=== PATIENT | female | born 1990 | race Two or more races ===

== ENCOUNTER 2021-04-19 11:07 | Emergency (ER) | payer OTHER ==
[~2021-04-19] VITALS: Ht 170.2 cm; Wt 106.6 kg
== END 2021-04-19 15:49 | disposition home or self-care (01) ==
LOC: ER 11:07
DX: O03.9 Complete or unspecified spontaneous abortion without complication (principal); Z20.822 Contact with and (suspected) exposure to COVID-19

== ENCOUNTER 2021-12-21 11:13 | Outpatient (CLI) | payer OTHER | END 2021-12-21 12:26 | disposition home or self-care (01) | LOC: PRENATAL 11:13 | PROVIDERS: ATTEND Obstetrics & Gynecology Maternal & Fetal Medicine | DX: O26.849 Uterine size-date discrepancy, unspecified trimester (principal); O35.0XX0 Maternal care for (suspected) central nervous system malformation in fetus, not applicable or unspecified; O28.1 Abnormal biochemical finding on antenatal screening of mother; Z3A.33 33 weeks gestation of pregnancy ==

== ENCOUNTER 2022-01-27 08:25 | Outpatient (CLI) | payer OTHER | END 2022-01-27 09:45 | disposition home or self-care (01) | LOC: PRENATAL 08:25 | PROVIDERS: ATTEND Obstetrics & Gynecology Maternal & Fetal Medicine | DX: Z34.82 Encounter for supervision of other normal pregnancy, second trimester (principal); Z3A.18 18 weeks gestation of pregnancy ==

== ENCOUNTER 2022-03-17 14:41 | Outpatient (CLI) | payer OTHER | END 2022-03-17 16:25 | disposition home or self-care (01) | LOC: PRENATAL 14:41 | PROVIDERS: ATTEND Obstetrics & Gynecology Maternal & Fetal Medicine | DX: O26.849 Uterine size-date discrepancy, unspecified trimester (principal); O10.019 Pre-existing essential hypertension complicating pregnancy, unspecified trimester; Z14.8 Genetic carrier of other disease; O99.210 Obesity complicating pregnancy, unspecified trimester; Z3A.28 28 weeks gestation of pregnancy ==

== ENCOUNTER 2022-05-12 14:02 | Outpatient (CLI) | payer OTHER | END 2022-05-12 15:30 | disposition home or self-care (01) | LOC: PRENATAL 14:02 | PROVIDERS: ATTEND Obstetrics & Gynecology Maternal & Fetal Medicine | DX: O26.849 Uterine size-date discrepancy, unspecified trimester (principal); O99.210 Obesity complicating pregnancy, unspecified trimester; O10.019 Pre-existing essential hypertension complicating pregnancy, unspecified trimester; Z3A.36 36 weeks gestation of pregnancy ==